=== PATIENT | male | born 1960 | race Caucasian/White ===

== ENCOUNTER 2017-05-23 05:47 | Observation (INO) | payer OTHER ==
[~2017-05-23] VITALS: Ht 190.5 cm; Wt 135.6 kg
[~2017-05-23 05:47] MED LIST: ASPI81TA44 PO; ATOR10TA PO; PRED20TA PO
--- NOTE | 2017-05-23 06:18 | PHYS DOC ---
Past History Past Medical History: Hypertension, Other Past Surgical History: Other Alcohol Use: Heavy Drug Use: None Adult General Chief Complaint Chief Complaint: DIZZY/LIGHT HEADED HPI HPI Patient is a 57 year old male who presents with dizziness, nausea, diaphoresis. He woke up it 5:00 and looked at the alarm clock and felt very "lightheaded". He denied vertigo type symptoms. He states he put his head back down and became very sweaty and nauseated. Try to get up and his symptoms occurred again. He called his who had drive home and bring him to the ER. His stated he looked very clammy when she arrived. He currently states he feels a little lightheaded and stated he had some chest pressure in the left side of his chest that did not radiate was not associated with any nausea or shortness of breath. He states he does have a history of hypertension but stopped taking his blood pressure medicines. He does not have a primary care physician. He does smoke a cigar occasionally and chews tobacco. He does drink 4 -5 beers several times a week. Currently denies any chest pain, shortness of breath, nausea or vomiting. He was admitted for chest pain in 2013. Patient was adopted, and has no past family history that he is aware of. Review of Systems Review of Systems Constitutional: Denies fever or chills [] Eyes: Denies change in visual acuity, redness, or eye pain [] HENT: Denies nasal congestion or sore throat [] Respiratory: Denies cough or shortness of breath [] Cardiovascular: No additional information not addressed in HPI [] GI: Denies abdominal pain, nausea, vomiting, bloody stools or diarrhea [] : Denies dysuria or hematuria [] Musculoskeletal: Denies back pain or joint pain [] Integument: Denies rash or skin lesions [] Neurologic: Denies headache, focal weakness or sensory changes [] Endocrine: Denies polyuria or polydipsia [] Allergies Allergies Allergies Coded Allergies Type Severity Reaction Last Updated Verified No Known Drug Allergies 07/08/14 No Physical Exam Physical Exam Constitutional: Well developed, well nourished, no acute distress, non-toxic appearance. [] HENT: Normocephalic, atraumatic, bilateral external ears normal, oropharynx moist, no oral exudates, nose normal. [] Eyes: PERRLA, EOMI, conjunctiva normal, no discharge. [] Neck: Normal range of motion, no tenderness, supple, no stridor. [] Cardiovascular:Heart rate regular rhythm, no murmur [] Lungs & Thorax: Bilateral breath sounds clear to auscultation [] Abdomen: Bowel sounds normal, soft, no tenderness, no masses, no pulsatile masses. [] Skin: Warm, dry, no erythema, no rash. [] Back: No tenderness, no CVA tenderness. [] Extremities: No tenderness, no cyanosis, no clubbing, ROM intact, no edema. [] Neurologic: Alert and oriented X 3, normal motor function, normal sensory function, no focal deficits noted. [] Psychologic: Affect normal, judgement normal, mood normal. [] EKG EKG EKG shows sinus rhythm 3-[address] elevations, T-wave inversions noted in lead 3, normal axis, QTC 418 ms, as interpreted by me. This is a change from his EKG on March 2014 Radiology/Procedures Radiology/Procedures One view chest x-ray did not show any focal consolidations, bony abnormalities, pneumothorax, as interpreted by me. Impressions: Dizziness Chest discomfort Tobacco abuse Hypertension Obesity Course & Med Decision Making Course & Med Decision Making Pertinent Labs and Imaging studies reviewed. (See chart for details) Patient is currently chest pain-free. His dizziness has subsided. He did have an episode when he laid flat in the bed that it got worse permanently. He does not have any logical deficits. His orthostatics were not positive. We will admit for chest pain rule out. He does have an EKG with new T-wave inversions in lead 3 and had one episode of brief chest discomfort. Patient's agreeable to the plan of being admitted to Dr. López in stable condition at this time. He was given a full dose aspirin. His initial troponin is negative. Spoke with Dr. López regarding the patient's history, physical exam, EKG findings, labs and vitals. Dragon Disclaimer Dragon Disclaimer This chart was dictated in whole or in part using Voice Recognition software in a busy, high-work load, and often noisy Emergency Department environment. It may contain unintended and wholly unrecognized errors or omissions. Departure Departure: Impression: Primary Impression: Chest pain Disposition: ADMITTED INPATIENT Admitting Physician: Tiana López Condition: STABLE Referrals: PCP,NO (PCP) Problem Qualifiers Primary Impression: Chest pain Chest pain type: unspecified Qualified Codes: R07.9 - Chest pain, unspecified ZHANG HARDING MD May 23, 2017 06:18
[2017-05-23] MEDS ORDERED: NITROGLYCERIN SUBLINGUAL 0.4 MG BOTTLE OF 25. SL PRN ×2 (06:30→07:45)
[2017-05-23 06:35] LABS: BASO # 0.1 x10^3/uL (0.0-0.2); BASO % 1 % (0-3); EOS # 0.2 x10^3/uL (0.0-0.7); EOS % 3 % (0-3); HEMATOCRIT 46.5 % (39.0-53.0); HEMOGLOBIN 16.3 g/dL (13.0-17.5); LYMPH # 2.2 x10^3/uL (1.0-4.8); LYMPH % 36 % (24-48); MEAN CORPUSCULAR HEMOGLOBIN 31 pg (25-35); MEAN CORPUSCULAR HGB CONC 35 g/dL (31-37); MEAN CORPUSCULAR VOLUME 90 fL (79-100); MONO # 0.4 x10^3/uL (0.0-1.1); MONO % 7 % (0-9); NEUT # 3.3 x10^3uL (1.8-7.7); NEUT % 53 % (31-73); PLATELET COUNT 271 x10^3/uL (140-400); RED BLOOD COUNT 5.17 x10^6/uL (4.30-5.70); RED CELL DISTRIBUTION WIDTH 13.8 % (11.5-14.5); WHITE BLOOD COUNT 6.2 x10^3/uL (4.0-11.0)
--- NOTE | 2017-05-23 06:54 | EKG ---
[address] [address] Test Date: 2017-05-23 Test Time: 06:19:39 Pat Name: KWASI SARKAR Department: Room: Gender: M Food Service Team Member: : 1960 Requested By: ZHANG HARDING Order Number: [id number] Reading MD: Measurements Intervals [place] Rate: 60 P: 48 GA: 150 QRS: 10 QRSD: 104 T: 12 QT: 418 QTc: 418 Interpretive Statements SINUS RHYTHM QRS(T) CONTOUR ABNORMALITY CONSIDER ANTEROLATERAL MYOCARDIAL DAMAGE CONSIDER INFERIOR INFARCT POSSIBLY ABNORMAL ECG RI6.01 No previous ECG available for comparison
[2017-05-23 06:58] LABS: ALBUMIN 3.9 g/dL (3.4-5.0); ALBUMIN/GLOBULIN RATIO 1.3 (1.0-1.7); CALCIUM 8.8 mg/dL (8.5-10.1); CREATININE 1.1 mg/dL (0.7-1.3); GFR 68.5; MAGNESIUM 2.2 mg/dL (1.8-2.4); POTASSIUM 4.3 mmol/L (3.5-5.1); TOTAL BILIRUBIN 0.5 mg/dL (0.2-1.0)
[2017-05-23] MEDS ORDERED: ASPIRIN ENTERIC COATED 81 MG TABLET.DR. PO ONE (07:40)
[2017-05-23] MEDS ORDERED: ASPIRIN 81 MG TAB.CHEW ONE (07:42)
[2017-05-23] MEDS ORDERED: ASPIRIN 325 MG TABLET PO ONE (07:45)
[2017-05-23] MEDS ORDERED: ONDANSETRON PF 4 MG/2 ML VIAL. IV PRN (07:45)
--- NOTE | 2017-05-23 08:08 | RAD ---
Indication chest pain. A single view of the chest was obtained and is compared to an examination 07/08/2014. Heart size is at the upper limits of normal but similar to the previous exam. There is no congestive heart failure. A focal infiltrate in either lung is not seen. There is no significant pleural fluid. No pneumothorax is seen. IMPRESSION: No acute finding in the chest. No significant change
[2017-05-23 08:14] LABS: AMPHETAMINE/METHAMPHETAMINE NEG (NEG); BARBITURATES NEG (NEG); BENZODIAZEPINES NEG (NEG); CANNABINOIDS NEG (NEG); COCAINE NEG (NEG); METHADONE NEG (NEG); OPIATES NEG (NEG); PHENCYCLIDINE NEG (NEG)
[2017-05-23 08:18] LABS: BACTERIA,URINE 0 /HPF (0-FEW); BILIRUBIN,URINE NEG (NEG); CLARITY,URINE CLEAR; COLOR,URINE YELLOW; GLUCOSE,URINE NEG (NEG); NITRITE,URINE NEG (NEG); RBC,URINE 0 /HPF (0-2); SQUAMOUS EPITHELIAL CELL,UR OCC /LPF; UROBILINOGEN,URINE 0.2 mg/dL (0.2 mg/dL); WBC,URINE 0 /HPF (0-4)
[2017-05-23 09:03] VITALS: BP 150/85
--- NOTE | 2017-05-23 09:21 | PDOC2 ---
CONSULT Date of Admission DATE: 05/23/17 TIME: : Reason for Consult: cp Problem List Problems Medical Problems: (1) Chest pain Status: Acute History of Present Illness Mr Valenzuela is a 57 year old male who presents with complaints of lightheadedness and chest pain. He reportedly woke up this am and on turning to hit his alarm, felt lightheaded and diaphoretic. He sat up and symptoms became worse so called his to bring him to the ED. He reports some mild chest pressure that occurred in the ED, lasted only 1-2 minutes and resolved spontaneously. He denies any associated symptoms. He currently denies any symptoms of lightheadedness, or chest discomfort. He reports being very active and walking alot for his job at [employer]. He denies symptoms of dyspnea, chest pain, palpitations, congestive symptoms or syncope. He denies prior episodes of lightheadedness as this am. He does report snoring and occasional daytime fatigue. He was previously diagnosed with hypertension but no longer takes medication for this. Past Medical History hypertension, questionable AMADO with a prior abnormal oximetry but no sleep study. Past Surgical History left knee surgery, appendix Family History bone cancer otherwise unknown Social History adopted, smokes rarely, chews tobacco, 4-5 beers several times per week. Current Medications Current Medications Nitroglycerin (Nitrostat) 0.4 mg PRN Q5MIN PRN SL CP RATING > 1/10; Start at 06:30; Stop 05/24/17 at 06:29 Aspirin (Nilson Aspirin) 325 mg 1X ONCE PO Last administered on 05/23/17t 07: 45; Start 05/23/17 at 07:45; Stop 05/23/17 at 07:46; Status DC Ondansetron HCl (Zofran) 4 mg PRN Q4HRS PRN IV NAUSEA/VOMITING; Start at 07:45; Stop 05/24/17 at 07:44 Nitroglycerin (Nitrostat) 0.4 mg PRN Q5MIN PRN SL CHEST PAIN; Start 05/23/17 at 07:45; Stop 05/23/17 at 09:03; Status DC Aspirin (Aspirin Enteric Coated) 81 mg STK-MED ONCE PO ; Start 05/23/17 at 07: 40; Stop 05/23/17 at 07:41; Status DC Aspirin (Children'S Aspirin) 81 mg STK-MED ONCE .ROUTE ; Start 05/23/17 at 07: 42; Stop 05/23/17 at 07:43; Status DC Active Scripts Active Prednisone 20 Mg Tablet 1 Tab PO BID Lipitor (Atorvastatin Calcium) 10 Mg Tablet 1 Tab PO QHS Children's Aspirin (Aspirin) 81 Mg Tab.chew 81 Mg PO DAILY Allergies: Coded Allergies: No Known Drug Allergies (Unverified , 07/08/14) Review of System as per HPI or negative General: Alert, Oriented X3, Cooperative, No acute distress HEENT: Atraumatic, EOMI, Mucous membr. moist/pink Lungs: Clear to auscultation, Normal air movement Heart: Regular rate, Normal S1, Normal S2 Abdomen: Normal bowel sounds, Soft, No tenderness Extremities: No cyanosis, No edema, Normal pulses Neuro: Normal speech, Strength at 5/5 X4 ext Psych/Mental Status: Mental status NL, Mood NL VITALS Vital Signs Date Time Temp Pulse Resp B/P (MAP) Pulse Ox O2 Delivery O2 Flow Rate FiO2 05/23/17 09:03 97.4 60 20 150/85 (106) 99 Room Air Labs Laboratory Tests Test 05/23/17 06:10 05/23/17 07:50 White Blood Count 6.2 x10^3/uL (4.0-11.0) Red Blood Count 5.17 x10^6/uL (4.30-5.70) Hemoglobin 16.3 g/dL (13.0-17.5) Hematocrit 46.5 % (39.0-53.0) Mean Corpuscular Volume 90 fL (79-100) Mean Corpuscular Hemoglobin 31 pg (25-35) Mean Corpuscular Hemoglobin Concent 35 g/dL (31-37) Red Cell Distribution Width 13.8 % (11.5-14.5) Platelet Count 271 x10^3/uL (140-400) Neutrophils (%) (Auto) 53 % (31-73) Lymphocytes (%) (Auto) 36 % (24-48) Monocytes (%) (Auto) 7 % (0-9) Eosinophils (%) (Auto) 3 % (0-3) Basophils (%) (Auto) 1 % (0-3) Neutrophils # (Auto) 3.3 x10^3uL (1.8-7.7) Lymphocytes # (Auto) 2.2 x10^3/uL (1.0-4.8) Monocytes # (Auto) 0.4 x10^3/uL (0.0-1.1) Eosinophils # (Auto) 0.2 x10^3/uL (0.0-0.7) Basophils # (Auto) 0.1 x10^3/uL (0.0-0.2) Prothrombin Time 10.9 SEC (9.4-11.4) Prothromb Time International Ratio 1.1 (0.9-1.1) Activated Partial Thromboplast Time 23 SEC (23-33) Sodium Level 140 mmol/L (136-145) Potassium Level 4.3 mmol/L (3.5-5.1) Chloride Level 106 mmol/L (98-107) Carbon Dioxide Level 24 mmol/L (21-32) Anion Gap 10 (6-14) Blood Urea Nitrogen 16 mg/dL (8-26) Creatinine 1.1 mg/dL (0.7-1.3) Estimated GFR (Cockcroft-Gault) 68.5 BUN/Creatinine Ratio 15 (6-20) Glucose Level 116 mg/dL (70-99) Calcium Level 8.8 mg/dL (8.5-10.1) Magnesium Level 2.2 mg/dL (1.8-2.4) Total Bilirubin 0.5 mg/dL (0.2-1.0) Aspartate Amino Transf (AST/SGOT) 19 U/L (15-37) Alanine Aminotransferase (ALT/SGPT) 46 U/L (16-63) Alkaline Phosphatase 77 U/L (46-116) Creatine Kinase 161 U/L (39-308) Creatine Kinase MB (Mass) 2.1 ng/mL (0.0-3.6) Creatine Kinase MB Relative Index 1.3 % (0-4) Troponin I Quantitative < 0.017 ng/mL (0-0.055) EJ-Mph-D-Type Natriuretic Peptide 135 pg/mL (0-124) Total Protein 7.0 g/dL (6.4-8.2) Albumin 3.9 g/dL (3.4-5.0) Albumin/Globulin Ratio 1.3 (1.0-1.7) Lipase 215 U/L (73-393) Urine Collection Type Unknown Urine Color Yellow Urine Clarity Clear Urine pH 5.5 Urine Specific [place] 1.015 Urine Protein Neg (NEG-TRACE) Urine Glucose (UA) Neg mg/dL (NEG) Urine Ketones (Stick) Neg mg/dL (NEG) Urine Blood Neg (NEG) Urine Nitrite Neg (NEG) Urine Bilirubin Neg (NEG) Urine Urobilinogen Dipstick 0.2 mg/dL (0.2 mg/dL) Urine Leukocyte Esterase Neg (NEG) Urine RBC 0 /HPF (0-2) Urine WBC 0 /HPF (0-4) Urine Squamous Epithelial Cells Occ /LPF Urine Bacteria 0 /HPF (0-FEW) Urine Opiates Screen Neg (NEG) Urine Methadone Screen Neg (NEG) Urine Barbiturates Neg (NEG) Urine Phencyclidine Screen Neg (NEG) Urine Amphetamine/Methamphetamine Neg (NEG) Urine Benzodiazepines Screen Neg (NEG) Urine Cocaine Screen Neg (NEG) Urine Cannabinoids Screen Neg (NEG) Urine Ethyl Alcohol Pos (NEG) Images EKG - sinus rhythm, non specific T abn Assessment/Plan 1. Chest pain - initial CE negative, no acute EKG abn. 2. lightheadedness - ? related to AMADO, bradycardia. Suggest orthostatics and tele. 3. Bradycardia - mild. monitor tele. Consider outpatient event monitoring 4. hypertension - check orthostatics and await echo. consider low dose lisinopril. 5. probable AMADO - suggest outpatient event monitoring. Await echo, start aspirin, monitor serial enzymes. If no significant abnormalities suggest outpatient event monitoring and MPI as well as home sleep study. Check lipids and add statin if indicated. Problems: SHAWNEE YANEZ BUSINESS OFFICE SPECIALIST May 23, 2017 09:21
--- NOTE | 2017-05-23 09:42 | NUR ---
57 yo male admitted to room 117 for chest pain. Pt prefers to go by [place] and his is at bedside. Admission assessment vitals completed. Pt is sitting up in bed, denies pain. 20g IV in right hand, saline locked. Pt states he has no medical history and takes no medications at home. Has recently had a colonoscopy with polyps found. Had a previous episode in 2013 with more c/o chest pain and SOB. Had a left knee surgery in 1976 for torn ligaments and appendectomy in 1974. Pt is adopted but knows that his biological mother is due to bone cancer. Had a BM at 0515 this morning and reported to the ER at 0547 following an episode that woke him up with sweating, nausea and dizzyness. States no history of HTN but BP was 163/91 upon arrival to ER and 150/85 on admission to the floor. Pt will remain NPO until seen by TANNER Espinosa with cardiology. Will get an ECHO today. Reviewed room and call light, denies further needs at this time.
--- NOTE | 2017-05-23 10:25 | CARD ---
APPROVED REPORT EXAM: Two-dimensional and M-mode echocardiogram with Doppler and color Doppler. Other Information Quality : Good INDICATION Chest Pain 2D DIMENSIONS RVDd3.4 (2.9-3.5cm)Left Atrium(2D)4.5 (1.6-4.0cm) IVSd1.2 (0.7-1.1cm)Aortic Root(2D)3.3 (2.0-3.7cm) LVDd5.9 (3.9-5.9cm)LVOT Diameter2.1 (1.8-2.4cm) PWd1.3 (0.7-1.1cm)LVDs4.0 (2.5-4.0cm) FS (%) 32.7 %SV104.7 ml LVEF(%)60.2 (>50%) Aortic Valve AoV Peak Calvin.117.9cm/sAoV VTI24.9cm AO Peak GR.5.6mmHgLVOT Peak Calvin.102.3cm/s LVOT VTI 24.65cmAO Mean GR.3mmHg AMARIS (VMAX)3.03ul3MFK (VTI)3.43cm2 Mitral Valve MV E Klpbhlab13.0cm/sMV DECEL PTDG801hn MV A Qeiqduen67.7cm/sE/A Ratio1.2 Tricuspid Valve TR P. Hhxwebsm032ep/sRAP PVZYPTPP5xzMz TR Peak Gr.28uyMhUZRV39jlAd Pulmonary Vein S1 Sxpworph37.1cm/sD2 Cojwulul64.8cm/s LEFT VENTRICLE The left ventricle is normal size. There is mild concentric left ventricular hypertrophy. The left ve ntricular systolic function is normal and the ejection fraction is within normal range. The Ejection Fraction is 55-60%. There is normal LV segmental wall motion. Transmitral Doppler flow pattern is Gra de I-abnormal relaxation pattern. RIGHT VENTRICLE The right ventricle is normal size. The right ventricular systolic function is normal. ATRIA The left atrium is mildly dilated. The right atrium size is normal. The interatrial septum is intact with no evidence for an atrial septal defect or patent foramen ovale as noted on 2-D or Doppler imagi ng. AORTIC VALVE The aortic valve is grossly normal in structure and function. Doppler and Color Flow revealed no sign ificant aortic regurgitation. There is no significant aortic valvular stenosis. MITRAL VALVE The mitral valve is normal in structure and function. There is no evidence of mitral valve prolapse. There is no mitral valve stenosis. Doppler and Color-flow revealed trace mitral regurgitation. TRICUSPID VALVE The tricuspid valve is normal in structure and function. Doppler and Color Flow revealed trace tricus pid regurgitation. The PA pressure was estimated at 22 mmHg. There is no tricuspid valve stenosis. PULMONIC VALVE The pulmonic valve is not well visualized but appears to be functioning normally by Doppler interroga tion. Doppler and Color Flow revealed no pulmonic valvular regurgitation. There is no pulmonic valvul ar stenosis. GREAT VESSELS The aortic root is normal in size. The ascending aorta is not well seen. The IVC is normal in size an d collapses >50% with inspiration. PERICARDIAL EFFUSION There is no evidence of significant pericardial effusion. Critical Notification Critical Value: No <Conclusion> The left ventricular systolic function is normal and the ejection fraction is within normal range. Th e Ejection Fraction is 55-60%. There is normal LV segmental wall motion.
[2017-05-23 10:56] VITALS: BP 146/78
[2017-05-23 15:01] VITALS: BP 145/79
[2017-05-23] MEDS ORDERED: LISI10TA2 PO (17:20)
--- NOTE | 2017-05-23 18:22 | SSS ---
ADMIT DATE: 05/23/2017 SHORT STAY SUMMARY This stay was greater than 8 hours and less than 24. Primary care was given by myself. DISCHARGE DIAGNOSES: 1. Dizziness with chest pain, myocardial infarction ruled out. 2. Sleep apnea suspect. 3. Bradycardia. 4. Elevated blood pressure. HOSPITAL COURSE: This is a 57-year-old male who woke up lightheaded with chest pain. Subsequent workup was negative. He was not orthostatic. His troponins were negative. He is a sleep apnea suspect and it is recommended by Cardiology that he have a sleep study as well as possibly event monitoring and possible MPI as an outpatient. PAST MEDICAL HISTORY: Hypertension and hyperlipidemia. SOCIAL HISTORY: He does not smoke, left [employer] and is working in [employer], does a lot of active work. REVIEW OF SYSTEMS: Negative as per HPI. OBJECTIVE: VITAL SIGNS: Blood pressure 145/79, pulse 57, respirations 20, temperature 97.6, pulse 96% on room air. Complexion is romaine. HEENT: Hearing is normal. Throat is clear. He actually has a large posterior pharynx. NECK: Short but supple. LUNGS: Clear. CARDIOVASCULAR: Regular rhythm and rate without murmur. ABDOMEN: Soft, nontender. EXTREMITIES: Without edema. LABORATORY DATA: Chest x-ray negative. Troponin is negative x 2, awaiting third troponin. BNP 35. Drug screens positive for alcohol. PLAN: Discharge home with lisinopril, low-fat diet and exercise. Other instructions per Francisca Khanna, which were typed for him. ISIS PAUL DO DR: FRANK/alek JOB#: [id number] / [id number]
--- NOTE | 2017-05-23 20:20 | NUR ---
Reviewed dismissal instructions, medications and follow up appointments needed. Lisinopril script sent to preferred pharmacy. Pt to find a PCP to get a sleep study, discuss symptoms, medications and labs. IV site discontinued. Denies further needs, ambulates out to private vehicle with .
[2017-05-23 20:44] VITALS: BP 144/95
[2017-05-24 05:13] LABS: HEMOGLOBIN A1C 5.1 % (4.8-5.6)
[2017-05-24] MEDS ORDERED: ASPIRIN ENTERIC COATED 81 MG TABLET.DR. PO SCH (08:00)
== END 2017-05-23 20:20 | disposition home or self-care (01) ==
LOC: ER 05:47 → 1 SOUTH 08:00
PROVIDERS: ADMIT Family Medicine; ATTEND Family Medicine
DX: R07.9 Chest pain, unspecified (principal); R42 Dizziness and giddiness; R00.1 Bradycardia, unspecified; I10 Essential (primary) hypertension; E78.5 Hyperlipidemia, unspecified; F17.200 Nicotine dependence, unspecified, uncomplicated
CPT/HCPCS: 36415; 71010; 80053; 80061; 80307; 81001; 82553; 83036; 83690; 83735; 83880; 84443; 84484; 85025; 85610; 85651; 85730; 93005; 93306; 99285; G0378; G0379; G0479

== ENCOUNTER 2021-08-12 21:24 | Emergency (ER) | payer OTHER ==
[~2021-08-12] VITALS: Ht 190.5 cm; Wt 138.2 kg
[~2021-08-12 21:24] MED LIST changes: -ASPI81TA44 PO; +ASPI81TA59 PO; +LISI10TA16 PO
--- NOTE | 2021-08-12 21:58 | PHYS DOC ---
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 States he had a twinge of pain, 3 out of 10, sharp in nature but then it got better. States over the course of the day it became more dull and achy and feels it in the upper part of his buttock. States it is about 6 out of 10, dull and achy in nature with no radiation anywhere else. States he is never had this happen before. Denies any other injuries. Denies any numbness/weakness/tingling. Denies any urinary or stool issues. Denies any trouble sitting, standing or walking. States he took a naproxen which gave him a little relief. Review of Systems Review of Systems Review of systems otherwise unremarkable except noted in HPI Allergies Allergies Allergies Coded Allergies Type Severity Reaction Last Updated Verified No Known Drug Allergies 07/08/14 No Physical Exam Physical Exam Constitutional: Well developed, well nourished, no acute distress, non-toxic appearance. [] HENT: Normocephalic, atraumatic, Eyes: conjunctiva normal, no discharge. [] Neck: Normal range of motion, no tenderness, supple, no stridor. [] Cardiovascular:Heart rate regular rhythm, no murmur [] Lungs & Thorax: Bilateral breath sounds clear to auscultation [] Abdomen: soft, no tenderness, no masses, no pulsatile masses. [] Skin: Warm, dry, no erythema, no rash. [] Back: No midline tenderness, step-offs, bruising or deformities, range of motion spine normal, left and right-sided lumbar paraspinal muscle tenderness and spasm, no CVA tenderness. [] Extremities: No tenderness, no cyanosis, no clubbing, ROM intact, no edema. [] Neurologic: Alert and oriented X 3, normal motor function, normal sensory function, able to sit, stand and walk without issue no focal deficits noted. [] Psychologic: Affect normal, judgement normal, mood normal. [] Current Patient Data Vital Signs Vital Signs Date Time Temp Pulse Resp B/P (MAP) Pulse Ox O2 Delivery O2 Flow Rate FiO2 1/20/22 21:36 97.9 60 18 181/73 (109) 96 Room Air EKG EKG [] Radiology/Procedures Radiology/Procedures [] Heart Score C/O Chest Pain: No Risk Factors: Risk Factors: DM, Current or recent (<one month) smoker, HTN, HLP, family history of CAD, obesity. Risk Scores: Risk Factors: DM, Current or recent (<one month) smoker, HTN, HLP, family history of CAD, obesity. Course & Med Decision Making Course & Med Decision Making Patient is a 61-year-old male who presents with low back pain Vital signs nonconcerning. Physical exam noted above. Given him pain medicine and muscle relaxer here in the ED. Discussed course of usual back strain, pinched nerve. Gave work note per patient's request. Advised on symptom treatment at home. Advised to follow-up in the morning with primary care physician. Gave return precautions to the ED. Patient grateful, verbalized understanding and agreed with plan of discharge. [] Dragon Disclaimer Dragon Disclaimer This electronic medical record was generated, in whole or in part, using a voice recognition dictation system. Departure Departure: Impression: Primary Impression: Back pain Referrals: GARRETT LINARES MD (PCP) Patient Instructions: Back Pain, Adult Additional Instructions: Thank you for coming into the emergency department tonight and allowing us to take care of you. Please read all the attached information carefully to go over things we discussed. Please start a Tylenol, ibuprofen, ice and Benadryl regimen as we discussed every 8 hours for Tylenol and ibuprofen every 6 hours for Benadryl. 800 mg of ibuprofen, 1000 mg of Tylenol and 50 mg of Benadryl. Are appropriate as long as you are not allergic and can tolerate. Please call your primary care physician in the morning to update on your ED visit and set up a follow-up as soon as possible. Please come back immediately with new or concerning symptoms as we discussed Scripts Cyclobenzaprine Hcl (CYCLOBENZAPRINE HCL) 10 Mg Tablet 1 TAB PO BID PRN for MUSCLE SPASMS for 7 Days, #14 TAB Prov: ALEXIA MCLAIN MD 08/12/21 ALEXIA MCLAIN MD Aug 12, 2021 21:58
[2021-08-12] MEDS ORDERED: CYCLOBENZAPRINE 10MG 4TABLET STARTPACK PO ONE (22:00)
[2021-08-12] MEDS ORDERED: diazePAM 5 MG TABLET. PO ONE (22:00)
[2021-08-12] MEDS ORDERED: oxyCODONE/APAP 5/325 1 TAB TABLET PO ONE (22:00)
[2021-08-12] MEDS ORDERED: CYCL10TA19 PO (22:07)
[2021-08-12] MEDS ORDERED: KETOROLAC 15 MG/ML VIAL. IM ONE (22:15)
[2021-08-12 22:42] VITALS: BP 164/77
== END 2021-08-12 22:47 | disposition home or self-care (01) ==
LOC: ER 21:24
DX: M54.59 Other low back pain (principal); M62.830 Muscle spasm of back
CPT/HCPCS: 96372; 99284; J1885